=== PATIENT | male | born 1970 | race Caucasian/White ===

== ENCOUNTER 2021-02-23 12:49 | Emergency (ER) | payer OTHER ==
[2021-02-23] MEDS: Fluorescein 1 MG Ophth Strip EYERT ONE (13:26)
[2021-02-23] MEDS: Proparacaine 0.5% Ophth Soln 15 ML Bottle EYELF ONE (13:26)
[2021-02-23] MEDS: Take Home: Diclofenac Sodium 0.1% Ophth Soln 5 ML, 1 Bottle Pack EYEBOTH ONE (13:27)
[2021-02-23] MEDS: Polymyxin B/Trimethoprim 10 ML Bottle EYERT ONE (13:27)
--- NOTE | 2021-02-23 14:01 | EDM.PDOC ---
ED HPI GENERAL MEDICAL PROBLEM - General Chief Complaint: ENT Problem Time Seen by Provider: 02/23/21 13:00 Source of Information: Reports: Patient History Limitations: Reports: No Limitations - History of Present Illness INITIAL COMMENTS - FREE TEXT/NARRATIVE: Pt. presents to ER with complaints of R eye irritation. Pt. states that he slept with his contact lenses in last night, and states today that he noticed this irritation. He states that [place] running water to wash his hands, so he opted to wear the contacts overnight. Denies any acute vision loss or change. No fever or chills. Denies any discharge. Denies doing any chopping, grinding, or other high velocity activity that could have injured the eye recently. No recent welding. He denies any eye trauma. Pt. states that he uses [facility] for an eye clinic. Onset: Today Onset Date: 02/23/21 Location: Reports: Face Quality: Reports: Burning Severity: Moderate Right Eye Pain Score (Numeric/FACES): 4 - Related Data Allergies Allergy/AdvReac Type Severity Reaction Status Date / Time No Known Allergies Allergy Verified 02/23/21 13:03 Home Meds: Home Meds Allopurinol [Zyloprim] 300 mg PO DAILY 02/23/21 [History] Past Medical History Cardiovascular History: Reports: Hypertension - Infectious Disease History Infectious Disease History: Reports: None Social & Family History - Tobacco Use Tobacco Use Status *Q: Never Tobacco User ED ROS GENERAL - Review of Systems Review Of Systems: See Below HEENT: Reports: Contact Lenses, Eye Pain. Denies: Eye Discharge, Vision Change ED EXAM, GENERAL - Physical Exam Exam: See Below Exam Limited By: No Limitations General Appearance: Alert, WD/WN, No Apparent Distress Eye Exam: Right Eye: Conjunctival Injection, Other (There appears to be a corneal abrasion medial to the pupil of the R eye. No obvious retained foreign body. No evident retained material to the underside of the eyelid.), Bilateral Eye: EOMI, Normal Fundi, PERRL Head: Atraumatic, Normocephalic Course - Vital Signs Last Recorded V/S: Last Vital Signs Temp 36.8 C 02/23/21 12:55 Pulse 104 H 02/23/21 12:55 Resp 16 02/23/21 12:55 BP 147/68 H 02/23/21 12:55 Pulse Ox 98 02/23/21 12:55 - Orders/Labs/Meds Meds: Medications Discontinued Medications Generic Name Dose Route Start Last Admin Trade Name Roberto DELGADO Reason Stop Dose Admin Diclofenac Sodium 1 packet 02/23/21 13:13 02/23/21 13:27 Take Home: Diclofenac Sodium 0.1% Ophth Soln 5 Ml, 1 Bottle Pack EYEBOTH 02/23/21 13:14 1 packet ONETIME ONE Administration Fluorescein Sodium 1 mg 02/23/21 13:05 02/23/21 13:26 Fluorescein 1 Mg Ophth Strip EYERT 02/23/21 13:06 1 mg ONETIME ONE Administration Polymyxin/Trimethoprim Sulfate 1 ml 02/23/21 13:13 02/23/21 13:27 Polymyxin B/Trimethoprim 10 Ml Bottle EYERT 02/23/21 13:14 1 drop ONETIME ONE Administration Proparacaine HCl 1 ml 02/23/21 13:06 02/23/21 13:26 Proparacaine 0.5% Ophth Soln 15 Ml Bottle EYELF 02/23/21 13:07 1 drop ONETIME ONE Administration - Re-Assessments/Exams Free Text/Narrative Re-Assessment/Exam: Proparacaine placed in R eye. Fluorescein exam was performed. No retained material in the eye. There appears to be an ulceration medial to the pupil on the R side. No globe injury noted. No hyphema. Departure - Departure Time of Disposition: 13:25 Disposition: Home, Self-Care 01 Clinical Impression: Corneal ulcer of right eye - Discharge Information Instructions: Corneal Ulcer, Polymyxin B; Trimethoprim eye drops, solution, Diclofenac eye solution Forms: ED Department Discharge Additional Instructions: Polytrim drops 1 drop 5 times daily for 7 days Diclofenac drops 1 drop 4 times daily for 5 days as needed for pain Protect eye from further injury Follow-up in eye clinic of choice tomorrow. Sepsis Event Note (ED) - Evaluation Sepsis Screening Result: No Definite Risk - Focused Exam Vital Signs: Vital Signs Temp Pulse Resp BP Pulse Ox 02/23/21 12:55 36.8 C 104 H 16 147/68 H 98 - Problem List Review Problem List Initiated/Reviewed/Updated: Yes - Assessment/Plan Plan: Pt. was provided with polytrim drops-1 drop to R eye 5 times daily for 7 days. He was also started in diclofenac drops, 1 drop 4 times daily for discomfort/irritation. Advised him to follow-up tomorrow with Dr. Botello for slit lamp exam and further evaluation of this problem. Advised to not use contact lenses. Protect eye from further injury today. He would probably be most comfortable in a dark room. All questions were answered.
== END 2021-02-23 13:30 | disposition home or self-care (01) ==
LOC: VM.ED 12:49
DX: H16.001 Unspecified corneal ulcer, right eye (principal); I10 Essential (primary) hypertension
CPT/HCPCS: 99283; A9270-GY

== ENCOUNTER 2022-06-05 09:44 | Day surgery (SDC) | payer OTHER ==
[~2022-06-05 09:44] MED LIST: Lactated Ringers 1,000 ML IV SCH
[2022-06-05] MEDS: Lactated Ringers 1,000 ML IV SCH (10:04)
[2022-06-05] MEDS ORDERED: Propofol 200 MG/20 ML SDV ONE (11:05)
[2022-06-05] MEDS ORDERED: Midazolam 1 MG/ML 2 ML SDV ONE (11:06)
[2022-06-05] MEDS ORDERED: fentaNYL 100 MCG/2 ML SDV ONE (11:06)
== END 2022-06-05 12:16 | disposition home or self-care (01) ==
LOC: VM.SDS 09:44
PROVIDERS: ATTEND Student in an Organized Health Care Education/Training Program
DX: Z12.11 Encounter for screening for malignant neoplasm of colon (principal); D12.2 Benign neoplasm of ascending colon; D12.3 Benign neoplasm of transverse colon; I10 Essential (primary) hypertension; M10.9 Gout, unspecified; E66.9 Obesity, unspecified; N52.9 Male erectile dysfunction, unspecified; I25.10 Atherosclerotic heart disease of native coronary artery without angina pectoris; E78.5 Hyperlipidemia, unspecified; Z80.0 Family history of malignant neoplasm of digestive organs; Z98.890 Other specified postprocedural states; Z79.899 Other long term (current) drug therapy; Z79.82 Long term (current) use of aspirin; Z87.891 Personal history of nicotine dependence; Z88.8 Allergy status to other drugs, medicaments and biological substances; Z68.36 Body mass index [BMI] 36.0-36.9, adult
CPT/HCPCS: 00811; J2250; J2704; J3010; J7120

== ENCOUNTER 2024-12-04 19:07 | Emergency (ER) | payer OTHER ==
[2024-12-04] MEDS: Take Home: Codeine/guaiFENesin 100-10 MG/5 ML Syrup 5 ML, 2 Cup Pack PO ONE (20:02)
== END 2024-12-04 20:20 | disposition home or self-care (01) ==
LOC: VM.ED 19:07
DX: U07.1 COVID-19 (principal); I10 Essential (primary) hypertension; Z79.899 Other long term (current) drug therapy; Z88.8 Allergy status to other drugs, medicaments and biological substances; Z79.82 Long term (current) use of aspirin
CPT/HCPCS: 87428-QW; 87651-QW; 99283; A9270-GY